=== PATIENT | male | born 1975 | race Caucasian/White ===

== ENCOUNTER 2017-05-11 12:38 | Day surgery (SDC) | payer MEDICAID ==
[2017-05-07 11:36] VITALS: BMI 32.5
[2017-05-11] MEDS ORDERED: Lactated Ringer's 1,000 ML IV ONE ×2 (15:00→17:15)
[2017-05-11] MEDS ORDERED: Bupivacaine HCl 0.5% PF (10 ml) Inj ONE (15:04)
[2017-05-11] MEDS ORDERED: ceFAZolin IV 1 gm in Dextrose 1 GM/50 ML BAG IVPB ONE (15:04)
[2017-05-11] MEDS ORDERED: cefTRIAXone IV 1 gm in Dextros 50 ML IVPB ONE (15:05)
[2017-05-11] MEDS ORDERED: Propofol 10 mg/ml Inj (20 ML) ONE (15:20)
[2017-05-11] MEDS ORDERED: HYDROmorphone 0.5 mg/0.5 ml ISec IVP PRN (16:14)
[2017-05-11] MEDS ORDERED: Oxycodone/Acetaminophen 5/325 mg Tab PO PRN (17:09)
[2017-05-11 18:13] VITALS: RESP 16
[2017-05-11 18:15] VITALS: BP 132/71; PULSE 75; TEMP 97.8; O2SAT 99
--- NOTE | 2017-06-08 04:53 | OP ---
UROLOGY OPERATIVE REPORT PROCEDURE DATE: 05/11/2017 PREOPERATIVE DIAGNOSIS: Skin band on the ventral surface of the penis and also abnormal lesion on the penis. PROCEDURE: Release of a skin band, and a plastic repair, and a penile skin biopsy, and fulguration. SURGEON: Tyrese Manzanares MD TYPE OF ANESTHESIA: I gave the patient Marcaine for local effect. ESTIMATED BLOOD LOSS: Less than 20 mL COMPLICATIONS: None. At the end of the procedure, the phallus looked very smooth and well defined line of healing have been setup. There is no bleeding noted and the band was released, very nicely, and also the lesion was taken down. (I have taken a lot of pictures and saved them. I had the nurse taking the pictures during the procedure itself and also pre and post pictures. Also I would like to say that this is as I am dictating now a repeat of the dictation as I am going through my mind this is unusual situation for a patient. I made clear notes while I dictated it. Clear mental notes while I dictating at the first time, but we are repeating a dictation now reviewing the undictated medical records). I also would like to put in this note that I have seen the patient subsequently and talked to the patient and he is overall much happier than he was before. Again, he had this skin band that predated his circumcision, which we did in the office. DESCRIPTION OF PROCEDURE: After obtaining informed consent, the patient was placed on the table. Routine monitors were placed. Time-out was called. We confirmed the patient position. We examined the patient under anesthesia carefully. Again, he has mentioned he has a skin band very tight on the ventral surface. The skin itself from the circumcision is healing very, very nicely. Then, he had a separate lesion. We outlined our markers. We used skin marking. I used special loops during the surgical procedure, magnifying loops. So, we were able to repair the skin using 7-0 single stranded PDS. With the plan to subsequently remove them rather than using an absorbable suture. The procedure began, we made outline per the markings. We would like to take out bands down. We used a small 11 sharp blade. Made an incision in the skin band and carved it gently. Once we did, we released the band, we left this. We will plan to close it. That is what I mentioned separately that the penile biopsy and fulguration was all done in a separate zone. The procedure continues regarding the skin bands. We then repaired it instead of side to side or front to front, we went with a little zigzag. To make sure there was no tension on the sutures and allow for smooth healing, we used both mostly 7-0 PDS. There were 1 or 2 areas where there was a little more blood noted so we used 5-0 suture. At this point, we reexamined it, looks like it has lined up very nicely. No obvious skin band. We provided a dry sterile wrap using Xeroform gauze and then applied a Coban. The patient tolerated the procedure well without complications. Tyrese Manzanares MD
--- NOTE | 2017-06-08 06:53 | HP ---
UROLOGY ADMISSION HISTORY AND PHYSICAL REASON FOR ADMISSION: Treatment of penile abnormality. HISTORY OF PRESENT ILLNESS: Mr. Stiles is a very pleasant gentleman. I had seen him back quite sometime years ago. At that time, he is having a lot of penile pain and discomfort and wanted circumcision for various reasons, mostly insurance related. He did not want to get it done at that time. He then presented to me a little while back during the summer months without real insurance and asked me if I can just do the circumcision in the office. I discussed with the patient at that time risks, benefits, and alternatives and we subsequently did a circumcision in the office. At that time, though, the patient had some kind of skin band and pulling that I felt would require more anesthesia. Now, he is here for this as well he has a lesion around it like some kind of extra skin that is not related to the foreskin, see the pictures that are enclosed in the chart. So the overall circumcision has healed actually very very well, the patient is very happy with that, but he is not happy with the band that is pulling on his penis, which is there pre and postop, but he is looking now that he has anesthesia to be able to take care of it, it hurts him every time he gets an erection that pulled on the penis. There is an extra little bit of tissue underneath. See the plan as listed below. PAST MEDICAL HISTORY AND SURGICAL HISTORY: As is listed on the chart. No history of an HI and CVA. MEDICATIONS: See chart. ALLERGIES: SEE CHART. REVIEW OF SYSTEMS: As above. No weight loss, chest pain, shortness of breath. No coughing. I do want to mention that again the patient complains of painful erection. This predates the circumcision. In fact, specifically, we had a lot of discussion about because I was concerned and was actually asking the patient to seek out second opinion, but it is not a circumcision issue, it is a skin issue and then the other is lesion on the penis. PHYSICAL EXAMINATION: GENERAL: Well-nourished male in no apparent distress. VITAL SIGNS: Within normal limits. NECK: No adenopathy. LUNGS: Clear. HEART: Normal S1 and S2. ABDOMEN: Overall soft. He has an foreskin has healed reasonably well, in fact the incision line is healing very-very nicely. On the ventral surface, there is a pull in the skin band under the separate lesion area. See the plans listed below. (Also see the pictures). DIAGNOSIS: Skin band on the ventral surface of the penis causing painful erections and a lesion. PLAN: I discussed the patient options, discussed second opinions, I discussed my concerns of keloid, I discussed risks of more banding. The plan is that we are also going to repair that band by making an incision. Then subsequently, we are going to repair it in a transverse Z-plastic wipe.. I discussed with the patient my concerns about recurrence. I discussed of my concern of more banding. I discussed the patient a lot of different options including getting a second opinion. But for various reasons, including insurance reasons and other factors, he prefers that I take care of the patient so I discussed with the patient that I am able to. We discussed risks, benefits, and alternatives and we are going to plan to proceed. 1. Antibiotics prophylaxis. 2. Take down of the band. 3. Biopsy and then further plans will follow. The risks and benefits will discuss at length. Tyrese Manzanares MD
== END 2017-05-11 18:16 | disposition home or self-care (01) ==
LOC: C.SDS 12:38
PROVIDERS: ATTEND Urology
DX: N50.9 Disorder of male genital organs, unspecified (principal)
CPT/HCPCS: 54055; 88304; J0690; J1885; J2405; J2704; J3010; J7120

== ENCOUNTER 2017-05-25 12:28 | Day surgery (SDC) | payer MEDICAID ==
[2017-05-07 11:46] VITALS: BMI 32.5
[2017-05-25] MEDS ORDERED: Lactated Ringer's 1,000 ML IV ONE (14:32)
[2017-05-25] MEDS ORDERED: Bupivacaine HCl 0.5% PF (10 ml) Inj ONE (14:32)
[2017-05-25] MEDS ORDERED: Midazolam 2 MG/2 ML VIAL ONE (14:38)
[2017-05-25] MEDS ORDERED: Propofol 10 mg/ml Inj (20 ML) ONE (14:43)
[2017-05-25] MEDS ORDERED: ceFAZolin IV 1 gm in Dextrose 1 GM/50 ML BAG IVPB ONE (14:52)
[2017-05-25] MEDS ORDERED: Oxycodone/Acetaminophen 5/325 mg Tab PO PRN (14:58)
[2017-05-25 15:48] VITALS: TEMP 97.8
[2017-05-25 16:09] VITALS: BP 121/80; PULSE 65; RESP 15; O2SAT 95
--- NOTE | 2017-05-26 03:18 | OP ---
UROLOGY OPERATIVE REPORT PREOPERATIVE DIAGNOSIS: Retained sutures. POSTOPERATIVE DIAGNOSIS: Retained sutures. PROCEDURE: Removal of suture, fine suture material. SURGEON: Tyrese Manzanares MD ESTIMATED BLOOD LOSS: Less than 10 mL. COMPLICATIONS: No complications. INDICATIONS: See history and physical for further details. This is very pleasant gentleman, but with about 10, 7 or 8-0 sutures that we placed. See the previously dictated note from 05/11/2017, two weeks ago, and we are not able to easily remove them. We brought here him for the above procedure. FINDINGS: Otherwise, it looks likes it has healed so beautifully. His initial skin tag and skin band, which are 2 separate things and have sutures on them are much better. The patient is extremely satisfied so far and he is here looking forward to getting the sutures out. DESCRIPTION OF PROCEDURE: After obtaining informed consent, the patient was placed on the table. Routine monitors were placed. Time-out was called. We confirmed the patient position. The patient was given antibiotic prophylaxis. We prepped the patient under sterile conditions and I do want to mention it is really very difficult to isolate all the suture material. There was no 12 blades, so we used an 11 blade. The patient was prepped in usual sterile fashion and I also gave, in person, Marcaine local anesthetic. The patient was then, with the skin on an outstretched, I used special loops magnifying glasses. They assisted me to see these fine-fine sutures and we were able to just trim the knots. I removed them very carefully. After further inspection, I do not see any further knots. I irrigated it copiously to make sure there is nothing. No left over sutures (see the addendum below). I redressed the wound with Xeroform and Kerlix. Overall, the patient tolerated the procedure without complications. Just I want to mentioned again, we used Marcaine to reassure that the patient will be more calm and not jumping, as well as localized anesthesia. I also want to mention that we removed all the sutures as best as possible, but I explained to the patient that with these kind of fine sutures, if he notices anything, he got to notify me immediately. So there are no granuloma issues. We had used a non-absorbable suture Monofilament deliberately using the PDS. Today, we removed it as best as possible. I think we removed it all. We applied a dry sterile dressing. The patient tolerated the procedure without complications. Tyrese Manzanares MD
--- NOTE | 2017-05-26 08:32 | HP ---
REASON FOR ADMISSION: Treatment of retained sutures. HISTORY OF PRESENT ILLNESS: A very pleasant 42-year-old gentleman, I did a circumcision initially. After that, the patient was complaining, we did not at the initial attempt touch the skin band. He was complaining that the skin band was starting to hurt him and this was somewhat different than before. We then discussed options. He also has a little area that is separate from the skin band, I can see the picture where he reports also some loose extra skin. We discussed the options that this was not induced by the circumcision, but perhaps was a little more unmasked by the present. Overall, this patient is very happy with the healing of the circumcision. He feels this is doing well. There is still edematous tissue, but the skin band is a separate issue, and it is not just a band that is tight underneath the penis under the frenulum and then there is a separate little just like a skin tag almost. We removed that last time we got the skin band. We used very fine sutures, a few 5-0, but mostly 7-0. He is here now to remove them, with little anesthesia and sedation and local anesthetic. PAST MEDICAL AND SURGICAL HISTORY: As listed in chart. No history of VT or CVA SOCIAL HISTORY: Unremarkable. He worked as . He has a girlfriend. He is waiting and anticipating to be sexually active. REVIEW OF SYSTEMS: No weight loss, chest pain or shortness of breath. PHYSICAL EXAMINATION GENERAL: A well-nourished male, in no apparent distress. VITAL SIGNS: Within normal limits. LUNGS: Clear. HEART: Normal S1, S2. ABDOMEN: Soft, nontender. GENITOURINARY: He has normal phallus. He is now circumcised. There is still mild edema noted, but it is healing around the area of the sutures, which are all grossly intact. The skin band is much much better and the other skin tag is also much better and noted healing, see the previously dictated note, where I described the repair with a little . DIAGNOSES: Phimosis, now circumcised, skin band that is pulling on the frenulum area and a skin tag which is also distressing to the patient. He now is postop on all these procedures. PLAN: The plan for today is also going to provide anesthesia, 1. Provide antibiotic prophylaxis. 2. We are going to remove the sutures. I will arrange for the OR. They wanted 11 blade. magnifying glasses. Tyrese Manzanares MD
== END 2017-05-25 16:45 | disposition home or self-care (01) ==
LOC: C.SDS 12:28
PROVIDERS: ATTEND Urology
DX: Z48.02 Encounter for removal of sutures (principal)
CPT/HCPCS: 10120; J0690; J2250; J2704; J3010; J7120